=== PATIENT | female | born 1940 | race African-American/Black ===

== ENCOUNTER 2017-10-26 12:33 | Inpatient (IN) | payer MEDICARE, OTHER ==
[~2017-10-26] VITALS: Ht 172.7 cm; Wt 81.6 kg
[2017-10-26] MEDS ORDERED: NITROGLYCERIN OINT 1GM/INCH UDPKT TD STA (16:21)
[2017-10-26] MEDS ORDERED: FUROSEMIDE 40MG/4ML VIAL IV STA (16:21)
[2017-10-26] MEDS ORDERED: ASPIRIN 81MG TABLET PO STA (16:21)
[2017-10-26 17:05] LABS: BASOPHILS % 1.1 % (0.0-2.0); EOSINOPHILS % 0.9 % (0.0-5.0); HEMATOCRIT. 38.2 % (36.0-48.0); HEMOGLOBIN. 12.4 g/dL (12.0-16.0); LYMPHOCYTES % 29.1 % (20.0-50.0); MEAN CORPUSCULAR HEMOGLOBIN 27.2 pg (28.0-32.0); MEAN CORPUSCULAR VOLUME 83.7 fL (81.0-99.0); MEAN PLATELET VOLUME 9.2 fl (7.4-10.4); MONOCYTES % 9.8 % (2.0-8.0); NEUTROPHILS % 59.1 % (40.0-76.0); PLATELET 271 x1000/uL (130-400); RED BLOOD CELL COUNT 4.57 mill/uL (4.2-5.4); RED CELL DISTRIBUTION WIDTH 16.2 % (11.6-14.6)
[2017-10-26 17:23] LABS: CHLORIDE 108 mEq/L (98-107)
[2017-10-26 17:25] LABS: D-DIMER 1.82 mg/L FEU (<0.50); INR 1.1; PARTIAL THROMBOPLASTIN TIME 24.2 sec (23.4-31.0); PROTHROMBIN TIME 11.8 sec (9.4-11.6)
[2017-10-26] MEDS ORDERED: ENOXAPARIN 80MG/0.8ML SYR SUBCUT ONE (20:00)
[2017-10-26] MEDS ORDERED: IOHEXOL-350 100 ML BOTTLE ONE (21:14)
[2017-10-26] MEDS ORDERED: ONDANSETRON HCL 4MG/2ML VIAL IV PRN (21:15)
[2017-10-26] MEDS ORDERED: DOCUSATE SODIUM 100MG CAPSULE PO PRN (21:15)
[2017-10-26] MEDS ORDERED: ACETAMINOPHEN 325MG TABLET PO PRN (21:15)
[2017-10-26] MEDS ORDERED: IPRATROPIUM/ALBUTEROL 0.5-3(2.5)MG/3ML NEB INH PRN (21:15)
[2017-10-26] MEDS ORDERED: HYDROCODONE/ACETAMINOPHEN 5/325MG TABLET PO PRN (21:15)
[2017-10-26] MEDS ORDERED: CLONIDINE 0.1MG TABLET PO PRN (21:15)
[2017-10-26] MEDS ORDERED: MAGNESIUM/ALUMINUM HYDROXIDE/SIMETHICONE 30ML UDC PO PRN (21:15)
[2017-10-26] MEDS ORDERED: GUAIFENESIN 200MG/10ML SUGAR FREE UDC PO PRN (21:15)
[2017-10-26 22:14] LABS: CHLORIDE 105 mEq/L (98-107)
[2017-10-26 22:21] LABS: CREATINE KINASE 245 IU/L (26-192); CREATINE KINASE MB FRACTION 2.1 ng/mL (0.5-3.6)
[2017-10-26 23:28] VITALS: BP 150/63
[2017-10-27 00:04] VITALS: BP 150/63
[2017-10-27 04:00] VITALS: BP 105/61
[2017-10-27 07:39] LABS: BASOPHILS % 0.6 % (0.0-2.0); EOSINOPHILS % 0.8 % (0.0-5.0); HEMATOCRIT. 37.4 % (36.0-48.0); LYMPHOCYTES % 22.6 % (20.0-50.0); MEAN CORPUSCULAR HEMOGLOBIN 26.9 pg (28.0-32.0); MEAN CORPUSCULAR VOLUME 83.5 fL (81.0-99.0); MEAN PLATELET VOLUME 9.5 fl (7.4-10.4); MONOCYTES % 10.5 % (2.0-8.0); NEUTROPHILS % 65.5 % (40.0-76.0); PLATELET 280 x1000/uL (130-400); RED BLOOD CELL COUNT 4.47 mill/uL (4.2-5.4); RED CELL DISTRIBUTION WIDTH 16.1 % (11.6-14.6)
[2017-10-27 08:00] VITALS: BP 136/70
[2017-10-27] MEDS: FUROSEMIDE 40MG/4ML VIAL IV SCH ×2 (09:38→17:49)
[2017-10-27] MEDS: ASPIRIN 81MG EC TABLET PO SCH (09:39)
[2017-10-27 10:14] LABS: CREATINE KINASE 241 IU/L (26-192); CREATINE KINASE MB FRACTION 2.1 ng/mL (0.5-3.6); HDL CHOLESTEROL 36 mg/dL (40-59); LDL CHOLESTEROL 64 mg/dL (5-100)
[2017-10-27 12:00] VITALS: BP 112/69
[2017-10-27] MEDS ORDERED: LORAZEPAM 2MG/ML CPJ IV SCH (15:45)
[2017-10-27 18:06] LABS: T4 FREE 2.08 ng/dL (0.76-1.46)
[2017-10-27 20:00] VITALS: BP 123/60
[2017-10-27] MEDS ORDERED: ZOLPIDEM TARTRATE 5MG TABLET PO PRN (23:00)
[2017-10-28 00:34] VITALS: BP 139/53
[2017-10-28 04:00] VITALS: BP 123/92
[2017-10-28 07:12] LABS: BASOPHILS % 0.8 % (0.0-2.0); EOSINOPHILS % 1.1 % (0.0-5.0); HEMATOCRIT. 36.1 % (36.0-48.0); HEMOGLOBIN. 11.9 g/dL (12.0-16.0); LYMPHOCYTES % 26.9 % (20.0-50.0); MEAN CORPUSCULAR HEMOGLOBIN 27.5 pg (28.0-32.0); MEAN CORPUSCULAR VOLUME 83.3 fL (81.0-99.0); MEAN PLATELET VOLUME 9.2 fl (7.4-10.4); MONOCYTES % 12.6 % (2.0-8.0); NEUTROPHILS % 58.6 % (40.0-76.0); PLATELET 277 x1000/uL (130-400); RED BLOOD CELL COUNT 4.33 mill/uL (4.2-5.4); RED CELL DISTRIBUTION WIDTH 15.8 % (11.6-14.6)
[2017-10-28 08:20] VITALS: BP 132/78
[2017-10-28 08:50] LABS: CHLORIDE 108 mEq/L (98-107)
[2017-10-28 09:13] LABS: HDL CHOLESTEROL 35 mg/dL (40-59); LDL CHOLESTEROL 60 mg/dL (5-100)
[2017-10-28] MEDS: FUROSEMIDE 40MG/4ML VIAL IV SCH ×2 (10:21→17:34)
[2017-10-28] MEDS: ASPIRIN 81MG EC TABLET PO SCH (10:21)
[2017-10-28 12:00] VITALS: BP 99/72
[2017-10-28 16:00] VITALS: BP 146/71
[2017-10-28 20:00] VITALS: BP 106/63
[2017-10-29] VITALS: BP 141/72
[2017-10-29 04:00] VITALS: BP 125/58
[2017-10-29 06:55] LABS: BASOPHILS % 0.7 % (0.0-2.0); EOSINOPHILS % 0.9 % (0.0-5.0); HEMATOCRIT. 39.1 % (36.0-48.0); HEMOGLOBIN. 12.7 g/dL (12.0-16.0); LYMPHOCYTES % 22.1 % (20.0-50.0); MEAN PLATELET VOLUME 8.9 fl (7.4-10.4); MONOCYTES % 12.6 % (2.0-8.0); NEUTROPHILS % 63.7 % (40.0-76.0); PLATELET 288 x1000/uL (130-400); RED CELL DISTRIBUTION WIDTH 16.2 % (11.6-14.6)
[2017-10-29 07:24] LABS: CHLORIDE 105 mEq/L (98-107)
[2017-10-29 07:31] LABS: HDL CHOLESTEROL 36 mg/dL (40-59); LDL CHOLESTEROL 65 mg/dL (5-100)
[2017-10-29 08:00] VITALS: BP 102/55
[2017-10-29] MEDS: ASPIRIN 81MG EC TABLET PO SCH (09:16)
[2017-10-29] MEDS: FUROSEMIDE 40MG/4ML VIAL IV SCH (09:16)
[2017-10-29] MEDS ORDERED: LORAZEPAM 2MG/ML CPJ IV SCH (10:45)
[2017-10-29 12:00] VITALS: BP 122/59
[2017-10-29] MEDS ORDERED: LORAZEPAM 2MG/ML CPJ IV NR (12:15)
[2017-10-29] MEDS ORDERED: IPRATROPIUM/ALBUTEROL 0.5-3(2.5)MG/3ML NEB HHN NR (15:15)
[2017-10-29] MEDS: PREDNISONE 20MG TABLET PO SCH (15:54)
[2017-10-29] MEDS: POTASSIUM CHLORIDE 20MEQ TABLET SR PO SCH (15:54)
[2017-10-29] MEDS: PANTOPRAZOLE 40MG DR TABLET PO SCH (15:54)
[2017-10-29 16:00] VITALS: BP 100/63
[2017-10-29 19:33] VITALS: BP 124/70
[2017-10-29] MEDS: FUROSEMIDE 40MG TABLET PO SCH (20:51)
[2017-10-30 00:33] VITALS: BP 129/49
[2017-10-30 05:25] VITALS: BP 120/59
[2017-10-30] MEDS: PANTOPRAZOLE 40MG DR TABLET PO SCH (06:27)
[2017-10-30 06:39] LABS: BASOPHILS % 0.5 % (0.0-2.0); EOSINOPHILS % 0.2 % (0.0-5.0); HEMATOCRIT 42.4 % (36.0-48.0); HEMATOCRIT. 42.4 % (36.0-48.0); HEMOGLOBIN 13.6 g/dL (12.0-16.0); HEMOGLOBIN. 13.6 g/dL (12.0-16.0); LYMPHOCYTES % 16.3 % (20.0-50.0); MEAN CORPUSCULAR HEMOGLOBIN 26.7 pg (28.0-32.0); MEAN CORPUSCULAR VOLUME 83.6 fL (81.0-99.0); MEAN PLATELET VOLUME 9.3 fl (7.4-10.4); MONOCYTES % 10.2 % (2.0-8.0); NEUTROPHILS % 72.8 % (40.0-76.0); PLATELET 302 x1000/uL (130-400); RED BLOOD CELL COUNT 5.07 mill/uL (4.2-5.4)
[2017-10-30 06:58] LABS: CHLORIDE 103 mEq/L (98-107)
[2017-10-30 08:00] VITALS: BP 134/65
[2017-10-30] MEDS: ASPIRIN 81MG EC TABLET PO SCH (09:32)
[2017-10-30] MEDS: PREDNISONE 20MG TABLET PO SCH (09:32)
[2017-10-30] MEDS: POTASSIUM CHLORIDE 20MEQ TABLET SR PO SCH (09:32)
[2017-10-30] MEDS: FUROSEMIDE 40MG TABLET PO SCH (09:32)
[2017-10-30 12:00] VITALS: BP 121/77
[2017-10-30 16:00] VITALS: BP 105/45
[2017-10-30 16:41] VITALS: BP 105/45
== END 2017-10-30 17:15 | disposition home or self-care (01) | DRG 280 ==
LOC: ER 14:40 → 6WST 20:02 → EDBEDREQ 20:02 → EDBEDREQTM 20:02 → ENRESERV 20:28
PROVIDERS: ADMIT Internal Medicine; ATTEND Internal Medicine
DX: I21.4 Non-ST elevation (NSTEMI) myocardial infarction (principal); G93.40 Encephalopathy, unspecified; E46 Unspecified protein-calorie malnutrition; I50.43 Acute on chronic combined systolic (congestive) and diastolic (congestive) heart failure; I42.9 Cardiomyopathy, unspecified; I11.0 Hypertensive heart disease with heart failure; F03.90 Unspecified dementia, unspecified severity, without behavioral disturbance, psychotic disturbance, mood disturbance, and anxiety; E78.00 Pure hypercholesterolemia, unspecified; F17.210 Nicotine dependence, cigarettes, uncomplicated; G51.0 Bell's palsy; I08.1 Rheumatic disorders of both mitral and tricuspid valves; I25.10 Atherosclerotic heart disease of native coronary artery without angina pectoris; I27.20 Pulmonary hypertension, unspecified; R00.1 Bradycardia, unspecified; E04.9 Nontoxic goiter, unspecified; J39.8 Other specified diseases of upper respiratory tract; J44.9 Chronic obstructive pulmonary disease, unspecified; Z78.1 Physical restraint status; Z86.73 Personal history of transient ischemic attack (TIA), and cerebral infarction without residual deficits; Z71.6 Tobacco abuse counseling; Z68.27 Body mass index [BMI] 27.0-27.9, adult
CPT/HCPCS: 36415; 70551; 71045; 71275; 80048; 80053; 80061; 82550; 82553; 83735; 83880; 84439; 84443; 84481; 84484; 85025; 85027; 85379; 85610; 85730; 92610; 93005; 93306; 93880; 93970; 97162; 97165; 99285; C1893; J1940; J2060; J7512; Q9967